=== PATIENT | female | born 1930 | race Caucasian/White ===

== ENCOUNTER → 2016-03-26 | Outpatient (CLI) | payer MEDICARE, MEDICAID ==
[~2016-03-26] MED LIST: ASPIRIN 81M81 MG/TA2 PO; B-121000 MCG PO; CEFTIN 250250 MG/TAB PO; CELEBREX 200MG200 MG PO; CHLORASEPTIC 1177 M1 MM; CHLORASEPTIC MM; COREG 3.123.125 MG/T PO; COREG12.5 MG PO; DIFLUCAN 100MG100 MG PO; DULCOLAX S10 MG/SUPP RC; EXELON PAT4.6 MG/24 TD; FERROUS GL325 MG/TAB PO; FOLIC ACID 11 MG/TA1 PO; GLUCERNA HUNGE340 ML PO; IRON TABLETS325 MG PO; LASIX 20MG TABL20 MG PO; LEVEMIR100 U/ML SQ; LIPITOR 10MG10 MG PO; LIPITOR 40MG TA40 MG PO; LOVENOX 4040 MG/0.4 SQ; MAG-OX 400400 MG/TAB PO; MILK OF MA400 MG/5 M PO; NEURONTIN100 MG/CAP PO; NEURONTIN300 MG/CAP PO; NORCO 325 MG-51 TAB PO; NORCO 325 MG-7.1 TAB PO; NOVOLOG 100U100 U/M1 SQ; OSCAL 500 TAB500 MG PO; PRIL40 PO; PRILOSEC 20MG20 MG PO; RIFADIN300 MG PO; SENNA8.6 MG PO; SENOKOT S 50 MG1 TAB PO; SENOKOT8.6 MG PO; SYNTHROID0.075 MG/T PO; SYNTHROID0.1 MG/TAB PO; THERAGRAN1 TA1 PO; TYLENOL 325MG325 MG PO; ULTRAM 50MG TAB50 MG PO; VANCOCIN HCL1 GM IV; VITAMIN B-1000 MCG/T PO; VITAMIN C500 MG PO; XARELTO10 MG PO; ZESTRIL 20MG TA20 MG PO; ZOCOR 80MG80 MG PO; ZYRTEC 10MG10 MG PO
[2016-03-26 17:58] LABS: THYROID STIMULATING HORMONE 2.57 uIU/mL (0.465-4.680)
== END ==
LOC: ZLAB.STJ 11:20
DX: E78.4 Other hyperlipidemia (principal); D64.89 Other specified anemias; E03.8 Other specified hypothyroidism

== ENCOUNTER → 2016-04-04 | Outpatient (CLI) | payer MEDICARE, MEDICAID ==
[2016-04-04 15:54] LABS: BASO # 0.1 (0.0-0.2); BASO % 0.6 % (0.0-2.0); EOS # 0.2 (0.0-0.7); EOS % 2.8 % (0-4.0); GRAN # 5.6 (1.4-6.5); GRAN % 64.8 % (42.2-75.2); HEMATOCRIT 36.8 % (37.0-47.0); HEMOGLOBIN 11.6 g/dl (12.5-16.0); LYMPH # 2.1 (1.2-3.4); LYMPH % 23.9 % (20.0-51.0); MEAN CELL VOLUME 97 fl (80.0-100.0); MEAN CORPUSCULAR HEMOGLOBIN 31 pg (27.0-31.0); MEAN CORPUSCULAR HGB CONC 32 g/dl (33.0-37.0); MEAN PLATELET VOLUME 11.4 fl (7.4-10.4); MONO # 0.7 (0.1-0.6); MONO % 7.6 % (1.7-9.3); PLATELET COUNT 171 K/mm3 (130-400); RED BLOOD COUNT 3.79 M/mm3 (4.10-5.30); REDCELL DISTRIBUTION WIDTH-CV 13.8 % (11.5-14.5); WHITE BLOOD COUNT 8.6 K/mm3 (4.8-10.8)
[2016-04-04 17:28] LABS: THYROID STIMULATING HORMONE 2.64 uIU/mL (0.465-4.680)
== END ==
LOC: ZLAB.STJ 15:00
PROVIDERS: Internal Medicine
DX: E78.5 Hyperlipidemia, unspecified (principal); D64.9 Anemia, unspecified; I50.9 Heart failure, unspecified; Z80.9 Family history of malignant neoplasm, unspecified; E03.9 Hypothyroidism, unspecified

== ENCOUNTER → 2016-04-10 | Outpatient (CLI) | payer MEDICARE, MEDICAID | LOC: ZLAB.STJ 14:20 | DX: E08.65 Diabetes mellitus due to underlying condition with hyperglycemia (principal) ==

== ENCOUNTER → 2016-05-03 | Outpatient (CLI) | payer MEDICARE, MEDICAID ==
[2016-05-03 12:08] LABS: BASO # 0.1 (0.0-0.2); BASO % 0.6 % (0.0-2.0); EOS # 0.3 (0.0-0.7); EOS % 3.1 % (0-4.0); GRAN % 62.3 % (42.2-75.2); HEMATOCRIT 38.1 % (37.0-47.0); HEMOGLOBIN 12.2 g/dl (12.5-16.0); LYMPH # 2.2 (1.2-3.4); MEAN CELL VOLUME 97 fl (80.0-100.0); MEAN CORPUSCULAR HEMOGLOBIN 31 pg (27.0-31.0); MEAN CORPUSCULAR HGB CONC 32 g/dl (33.0-37.0); MEAN PLATELET VOLUME 11.1 fl (7.4-10.4); MONO # 0.6 (0.1-0.6); MONO % 6.9 % (1.7-9.3); PLATELET COUNT 179 K/mm3 (130-400); RED BLOOD COUNT 3.94 M/mm3 (4.10-5.30); WHITE BLOOD COUNT 8.1 K/mm3 (4.8-10.8)
[2016-05-03 12:16] LABS: ADJUSTED CALCIUM 9.6 mg/dL (8.4-10.2); ALBUMIN 3.5 gm/dL (3.5-5.0); BILIRUBIN,TOTAL 0.7 mg/dL (0.0-1.0); CALCIUM 9.2 mg/dL (8.4-10.2); CREATININE, serum 1.6 mg/dL (0.52-1.25); POTASSIUM 5.4 mmol/L (3.4-5.0); TOTAL PROTEIN 6.8 gm/dL (6.4-8.2)
== END ==
LOC: ZLAB.STJ 09:15
PROVIDERS: Internal Medicine
DX: F03.90 Unspecified dementia, unspecified severity, without behavioral disturbance, psychotic disturbance, mood disturbance, and anxiety (principal)

== ENCOUNTER → 2016-06-07 | Outpatient (CLI) | payer MEDICARE, MEDICAID ==
[2016-06-07 17:56] LABS: PH 5 (5-8); URINE APPEARANCE Turbid; URINE BACTERIA None Seen /hpf; URINE BILIRUBIN Negative (NEGATIVE); URINE BLOOD 1+ (NEGATIVE); URINE COLOR Yellow; URINE GLUCOSE Negative (NEGATIVE); URINE KETONE Negative (NEGATIVE); URINE RBC >50 /hpf; URINE UROBILINOGEN Negative (NEGATIVE); URINE WBC >50 /hpf
== END ==
LOC: ZLAB.STJ 17:37
PROVIDERS: Internal Medicine
DX: Z01.89 Encounter for other specified special examinations (principal)

== ENCOUNTER → 2016-07-31 | Outpatient (CLI) | payer MEDICARE, MEDICAID ==
[2016-07-31 11:01] LABS: CALCIUM 8.9 mg/dL (8.4-10.2); CREATININE, serum 1.48 mg/dL (0.52-1.25); POTASSIUM 5.6 mmol/L (3.4-5.0)
== END ==
LOC: ZLAB.STJ 09:41
PROVIDERS: Internal Medicine
DX: I10 Essential (primary) hypertension (principal)

== ENCOUNTER → 2016-08-03 | Outpatient (CLI) | payer MEDICARE, MEDICAID | LOC: ZCOL.LAB 14:17 | DX: E87.5 Hyperkalemia (principal) ==

== ENCOUNTER → 2016-08-09 | Outpatient (CLI) | payer MEDICARE, MEDICAID ==
[2016-08-09 12:39] LABS: BASO # 0.1 (0.0-0.2); BASO % 0.6 % (0.0-2.0); EOS # 0.2 (0.0-0.7); EOS % 2.2 % (0-4.0); GRAN # 6.1 (1.4-6.5); LYMPH % 22.2 % (20.0-51.0); MEAN CELL VOLUME 99 fl (80.0-100.0); MEAN CORPUSCULAR HGB CONC 31 g/dl (33.0-37.0); MEAN PLATELET VOLUME 11.4 fl (7.4-10.4); MONO # 0.7 (0.1-0.6); MONO % 7.8 % (1.7-9.3); PLATELET COUNT 184 K/mm3 (130-400); RED BLOOD COUNT 3.57 M/mm3 (4.10-5.30); REDCELL DISTRIBUTION WIDTH-CV 14.6 % (11.5-14.5); WHITE BLOOD COUNT 9.1 K/mm3 (4.8-10.8)
[2016-08-09 12:47] LABS: HEMATOCRIT 35.2 % (37.0-47.0); MEAN CORPUSCULAR HEMOGLOBIN 31 pg (27.0-31.0)
[2016-08-09 13:02] LABS: CALCIUM 8.6 mg/dL (8.4-10.2); CREATININE, serum 1.36 mg/dL (0.52-1.25); POTASSIUM 5.2 mmol/L (3.4-5.0)
== END ==
LOC: ZLAB.STJ 12:16
PROVIDERS: Nurse Practitioner
DX: M62.82 Rhabdomyolysis (principal); I10 Essential (primary) hypertension; E08.65 Diabetes mellitus due to underlying condition with hyperglycemia

== ENCOUNTER → 2016-08-14 | Outpatient (CLI) | payer MEDICARE, MEDICAID | LOC: ZLAB.STJ 11:56 | DX: E56.9 Vitamin deficiency, unspecified (principal) ==

== ENCOUNTER → 2016-11-05 | Outpatient (CLI) | payer MEDICARE, MEDICAID ==
[2016-11-05 10:52] LABS: BASO # 0.1 (0.0-0.2); BASO % 0.5 % (0.0-2.0); EOS # 0.2 (0.0-0.7); EOS % 2.5 % (0-4.0); GRAN # 6.6 (1.4-6.5); GRAN % 68.9 % (42.2-75.2); HEMATOCRIT 38.1 % (37.0-47.0); LYMPH % 20.6 % (20.0-51.0); MEAN CELL VOLUME 96 fl (80.0-100.0); MEAN CORPUSCULAR HEMOGLOBIN 30 pg (27.0-31.0); MEAN CORPUSCULAR HGB CONC 32 g/dl (33.0-37.0); MEAN PLATELET VOLUME 11.1 fl (7.4-10.4); MONO # 0.7 (0.1-0.6); MONO % 7.3 % (1.7-9.3); PLATELET COUNT 180 K/mm3 (130-400); RED BLOOD COUNT 3.98 M/mm3 (4.10-5.30); REDCELL DISTRIBUTION WIDTH-CV 13.6 % (11.5-14.5); WHITE BLOOD COUNT 9.6 K/mm3 (4.8-10.8)
[2016-11-05 11:06] LABS: ADJUSTED CALCIUM 9.3 mg/dL (8.4-10.2); ALBUMIN 3.5 gm/dL (3.5-5.0); BILIRUBIN,TOTAL 0.5 mg/dL (0.0-1.0); CALCIUM 8.9 mg/dL (8.4-10.2); CREATININE, serum 1.37 mg/dL (0.52-1.25); POTASSIUM 4.9 mmol/L (3.4-5.0); TOTAL PROTEIN 6.8 gm/dL (6.4-8.2)
== END ==
LOC: ZCOL.LAB 10:18
PROVIDERS: Internal Medicine
DX: I50.9 Heart failure, unspecified (principal); E08.65 Diabetes mellitus due to underlying condition with hyperglycemia

== ENCOUNTER → 2016-11-06 | Outpatient (CLI) | payer MEDICARE, MEDICAID ==
[2016-11-06 15:40] LABS: PH 7 (5-8); SQUAMOUS EPITHELIAL None Seen /hpf; URINE APPEARANCE Turbid; URINE BACTERIA Rare /hpf; URINE BILIRUBIN Negative (NEGATIVE); URINE BLOOD 3+ (NEGATIVE); URINE COLOR Yellow; URINE GLUCOSE Negative (NEGATIVE); URINE KETONE Negative (NEGATIVE); URINE RBC >50 /hpf; URINE UROBILINOGEN Negative (NEGATIVE)
[2016-11-06 15:42] LABS: URINE WBC >50 /hpf
== END ==
LOC: ZLAB.STJ 15:20
PROVIDERS: Internal Medicine
DX: N39.0 Urinary tract infection, site not specified (principal)

== ENCOUNTER → 2017-01-30 | Outpatient (REF) ==
[2017-01-30 09:55] LABS: CALCIUM 8.8 mg/dL (8.4-10.2); CREATININE, serum 1.55 mg/dL (0.52-1.25); POTASSIUM 5.2 mmol/L (3.4-5.0)
== END ==
LOC: ZLAB.STJ 09:40
PROVIDERS: Internal Medicine
DX: I10 Essential (primary) hypertension (principal)

== ENCOUNTER 2017-03-04 18:30 | Inpatient (IN) | payer MEDICARE, MEDICAID ==
[~2017-03-04] VITALS: Ht 154.9 cm; Wt 92.0 kg
[2017-03-04] MEDS ORDERED: LIPITOR20 MG PO (18:55)
[2017-03-04] MEDS ORDERED: LEVOXYL0.075 MG PO (18:56)
[2017-03-04] MEDS ORDERED: NOVOLOG 100U100 U/M1 SQ (18:57)
[2017-03-04] MEDS ORDERED: ZOFRAN 4MG T4 MG/TAB PO (18:57)
[2017-03-04] MEDS ORDERED: FOLIC ACID 11 MG/TA1 PO (18:58)
[2017-03-04] MEDS ORDERED: NEURONTIN100 MG/CAP PO (18:58)
[2017-03-04 19:08] LABS: BASO % 0.3 % (0.0-2.0); EOS % 0.3 % (0-4.0); GRAN # 9.1 (1.4-6.5); GRAN % 80.9 % (42.2-75.2); HEMATOCRIT 37.3 % (37.0-47.0); LYMPH # 1.2 (1.2-3.4); LYMPH % 11.1 % (20.0-51.0); MEAN CELL VOLUME 101 fl (80.0-100.0); MEAN CORPUSCULAR HEMOGLOBIN 30 pg (27.0-31.0); MEAN CORPUSCULAR HGB CONC 30 g/dl (33.0-37.0); MEAN PLATELET VOLUME 10.6 fl (7.4-10.4); MONO # 0.8 (0.1-0.6); PLATELET COUNT 145 K/mm3 (130-400); RED BLOOD COUNT 3.71 M/mm3 (4.10-5.30); REDCELL DISTRIBUTION WIDTH-CV 13.9 % (11.5-14.5)
[2017-03-04 19:09] LABS: HEMOGLOBIN 11.2 g/dl (12.5-16.0)
[2017-03-04 19:16] LABS: ALBUMIN 4.1 gm/dL (3.5-5.0); BILIRUBIN,TOTAL 0.6 mg/dL (0.0-1.0); CREATININE, serum 1.73 mg/dL (0.52-1.25); POTASSIUM 5.5 mmol/L (3.4-5.0); TOTAL PROTEIN 7.9 gm/dL (6.4-8.2)
[2017-03-04] MEDS ORDERED: OYSTER SHELL C500 MG PO (19:18)
[2017-03-04] MEDS ORDERED: NEURONTIN300 MG/CAP PO (19:18)
[2017-03-04] MEDS ORDERED: EXELON PAT4.6 MG/24 TD (19:19)
[2017-03-04] MEDS ORDERED: COREG12.5 MG PO (19:20)
[2017-03-04] MEDS ORDERED: ZYRTEC 10MG10 MG PO (19:21)
[2017-03-04] MEDS ORDERED: PEPCID 20MG TAB20 MG PO (19:22)
[2017-03-04] MEDS ORDERED: MAPAP MULTI-SYM1 TA1 PO (19:23)
[2017-03-04] MEDS ORDERED: GOOD NEIGH1200 MG/15 PO (19:25)
[2017-03-04] MEDS ORDERED: IMODIUM 2MG CAPS2 MG PO (19:26)
[2017-03-04] MEDS ORDERED: ALMACONE 360 M360 ML PO (19:35)
[2017-03-04] MEDS ORDERED: NORCO 325 MG-51 TAB PO ×2 (19:36)
[2017-03-04] MEDS ORDERED: LEVEMIR100 U/ML SQ (19:37)
[2017-03-04] MEDS ORDERED: MAG-OX 400400 MG/TAB PO (19:38)
[2017-03-04] MEDS ORDERED: SENOKOT S 50 MG1 TAB PO (19:38)
[2017-03-04] MEDS ORDERED: ZESTRIL 10MG10 MG PO (19:39)
[2017-03-04] MEDS ORDERED: FERROUS SU325 MG/TAB PO (19:40)
[2017-03-04] MEDS ORDERED: LASIX 20MG TABL20 MG PO (20:09)
[2017-03-04] MEDS ORDERED: ROBITUSSIN DM 105 ML PO (20:10)
[2017-03-04] MEDS ORDERED: ALBUTEROL0.83 MG/ML IH (20:12)
[2017-03-04] MEDS ORDERED: NYSTATIN CREAM15 GM TP (20:13)
[2017-03-04 20:56] LABS: COLLECTION METHOD CATHETER
[2017-03-04 21:14] LABS: BUDDING YEAST Present /hpf; PH 6 (5-8); SQUAMOUS EPITHELIAL None Seen /hpf; URINE APPEARANCE Turbid; URINE BACTERIA Rare /hpf; URINE BILIRUBIN Negative (NEGATIVE); URINE BLOOD 3+ (NEGATIVE); URINE COLOR Yellow; URINE GLUCOSE 1+ (NEGATIVE); URINE KETONE Negative (NEGATIVE); URINE LEUKOCYTE ESTERASE 3+ (NEGATIVE); URINE NITRATE Negative (NEGATIVE); URINE PROTEIN(semi-quant) 2+ (NEGATIVE); URINE RBC >50 /hpf; URINE UROBILINOGEN Negative (NEGATIVE)
[2017-03-04 21:24] LABS: INFLUENZA A NEGATIVE; INFLUENZA B NEGATIVE
[2017-03-04 22:21] VITALS: BP 161/51; PULSE 72; TEMP 98
[2017-03-04 23:56] VITALS: BP 124/40; PULSE 64; TEMP 98.1
[2017-03-05] VITALS (7 sets, daily range): BP systolic 119–179; BP diastolic 47–110; PULSE 59–74; TEMP 97.4–99.9
[2017-03-05 04:34] LABS: ARTERIAL BLD GAS O2 SATURATION 93.6 % (92-100); ARTERIAL BLD GAS TCO2 CT 29.7; ARTERIAL BLOOD GAS BASE EXCESS 0.4 (-2-2); ARTERIAL BLOOD GAS HCO3 27.9 meq/L (22-26); ARTERIAL BLOOD GAS PCO2 58.2 mmHg (35-45); ARTERIAL BLOOD GAS PO2 72.8 mmHg (80-100)
[2017-03-05 06:49] LABS: ARTERIAL BLD GAS O2 SATURATION 96.2 % (92-100); ARTERIAL BLD GAS TCO2 CT 33.4; ARTERIAL BLOOD GAS BASE EXCESS 4.2 (-2-2); ARTERIAL BLOOD GAS HCO3 31.5 meq/L (22-26); ARTERIAL BLOOD GAS PCO2 61.1 mmHg (35-45); ARTERIAL BLOOD GAS PO2 92.3 mmHg (80-100); ARTERIAL BLOOD GAS pH 7.33 (7.35-7.45)
[2017-03-05 07:59] LABS: BASO % 0.2 % (0.0-2.0); EOS % 0.1 % (0-4.0); GRAN # 7.3 (1.4-6.5); GRAN % 79.5 % (42.2-75.2); LYMPH # 1.3 (1.2-3.4); LYMPH % 13.9 % (20.0-51.0); MEAN CELL VOLUME 100 fl (80.0-100.0); MEAN CORPUSCULAR HGB CONC 30 g/dl (33.0-37.0); MEAN PLATELET VOLUME 10.6 fl (7.4-10.4); MONO # 0.5 (0.1-0.6); MONO % 5.8 % (1.7-9.3); PLATELET COUNT 127 K/mm3 (130-400); REDCELL DISTRIBUTION WIDTH-CV 13.8 % (11.5-14.5)
[2017-03-05 08:00] LABS: HEMOGLOBIN 10.2 g/dl (12.5-16.0); MEAN CORPUSCULAR HEMOGLOBIN 30 pg (27.0-31.0)
[2017-03-05 08:16] LABS: CALCIUM 8.2 mg/dL (8.4-10.2); CREATININE, serum 1.58 mg/dL (0.52-1.25); POTASSIUM 4.8 mmol/L (3.4-5.0)
[2017-03-05 15:04] LABS: ARTERIAL BLD GAS O2 SATURATION 96.7 % (92-100); ARTERIAL BLD GAS TCO2 CT 33.8; ARTERIAL BLOOD GAS BASE EXCESS 5.5 (-2-2); ARTERIAL BLOOD GAS HCO3 32.1 meq/L (22-26); ARTERIAL BLOOD GAS PCO2 56.1 mmHg (35-45); ARTERIAL BLOOD GAS PO2 89.1 mmHg (80-100); ARTERIAL BLOOD GAS pH 7.38 (7.35-7.45)
[2017-03-06 04:01] VITALS: BP 153/66; PULSE 61; TEMP 97.3
[2017-03-06 05:34] LABS: ARTERIAL BLD GAS O2 SATURATION 96.9 % (92-100); ARTERIAL BLD GAS TCO2 CT 34.6; ARTERIAL BLOOD GAS BASE EXCESS 7.8 (-2-2); ARTERIAL BLOOD GAS HCO3 33.1 meq/L (22-26); ARTERIAL BLOOD GAS PCO2 49.3 mmHg (35-45); ARTERIAL BLOOD GAS PO2 97.8 mmHg (80-100); ARTERIAL BLOOD GAS pH 7.45 (7.35-7.45)
[2017-03-06 07:24] LABS: BASO % 0.1 % (0.0-2.0); GRAN # 6.4 (1.4-6.5); GRAN % 82.6 % (42.2-75.2); LYMPH # 1.2 (1.2-3.4); LYMPH % 15.1 % (20.0-51.0); MEAN CELL VOLUME 97 fl (80.0-100.0); MEAN CORPUSCULAR HGB CONC 31 g/dl (33.0-37.0); MONO # 0.1 (0.1-0.6); MONO % 1.8 % (1.7-9.3); PLATELET COUNT 161 K/mm3 (130-400); RED BLOOD COUNT 3.69 M/mm3 (4.10-5.30); REDCELL DISTRIBUTION WIDTH-CV 13.7 % (11.5-14.5)
[2017-03-06 07:26] LABS: HEMATOCRIT 35.8 % (37.0-47.0); HEMOGLOBIN 11.2 g/dl (12.5-16.0); MEAN CORPUSCULAR HEMOGLOBIN 30 pg (27.0-31.0)
[2017-03-06 07:42] LABS: CALCIUM 8.9 mg/dL (8.4-10.2); CREATININE, serum 1.9 mg/dL (0.52-1.25); MAGNESIUM 1.9 mg/dL (1.6-2.3); POTASSIUM 4.2 mmol/L (3.4-5.0)
[2017-03-06 08:52] VITALS: BP 171/51; PULSE 59; TEMP 98.5
[2017-03-06 11:48] VITALS: BP 146/58; BP 159/106; PULSE 58; TEMP 98.3
[2017-03-06 16:29] VITALS: BP 175/65; PULSE 60; TEMP 97.8
[2017-03-06 19:51] VITALS: BP 151/64; PULSE 60; TEMP 97.8
[2017-03-06 23:39] VITALS: BP 133/57; PULSE 62; TEMP 97.6
[2017-03-07 03:48] VITALS: BP 103/82; PULSE 58; TEMP 98.4
[2017-03-07 07:30] LABS: MEAN CELL VOLUME 95 fl (80.0-100.0); MEAN CORPUSCULAR HGB CONC 32 g/dl (33.0-37.0); MEAN PLATELET VOLUME 11.3 fl (7.4-10.4); PLATELET COUNT 174 K/mm3 (130-400); RED BLOOD COUNT 3.73 M/mm3 (4.10-5.30); REDCELL DISTRIBUTION WIDTH-CV 13.5 % (11.5-14.5)
[2017-03-07 07:47] LABS: HEMATOCRIT 35.5 % (37.0-47.0); HEMOGLOBIN 11.3 g/dl (12.5-16.0); MEAN CORPUSCULAR HEMOGLOBIN 30 pg (27.0-31.0)
[2017-03-07 07:54] LABS: CALCIUM 8.8 mg/dL (8.4-10.2); CREATININE, serum 2.01 mg/dL (0.52-1.25); POTASSIUM 3.6 mmol/L (3.4-5.0)
[2017-03-07 08:31] VITALS: BP 156/58; PULSE 60; TEMP 98.8
[2017-03-07 08:46] LABS: BAND 23 % (0-10); LYMPHOCYTE 2 % (20.0-51.0); NEUTROPHILS 71 % (42.0-75.2); PLATELET ESTIMATE NORMAL (NORMAL)
[2017-03-07 12:20] VITALS: BP 167/66; PULSE 56; TEMP 98.2
[2017-03-07 16:34] VITALS: BP 157/63; PULSE 60; TEMP 98.9
[2017-03-07 19:34] VITALS: BP 150/55; PULSE 59; TEMP 97.6
[2017-03-08] VITALS (8 sets, daily range): BP systolic 143–199; BP diastolic 52–82; PULSE 59–61; TEMP 97.5–98.7
[2017-03-08 06:38] LABS: HEMATOCRIT 37.2 % (37.0-47.0); HEMOGLOBIN 12.2 g/dl (12.5-16.0); MEAN CELL VOLUME 93 fl (80.0-100.0); MEAN CORPUSCULAR HEMOGLOBIN 31 pg (27.0-31.0); MEAN CORPUSCULAR HGB CONC 33 g/dl (33.0-37.0); MEAN PLATELET VOLUME 11.1 fl (7.4-10.4); PLATELET COUNT 206 K/mm3 (130-400); RED BLOOD COUNT 3.99 M/mm3 (4.10-5.30); REDCELL DISTRIBUTION WIDTH-CV 13.2 % (11.5-14.5)
[2017-03-08 06:51] LABS: CREATININE, serum 1.94 mg/dL (0.52-1.25); POTASSIUM 3.6 mmol/L (3.4-5.0)
[2017-03-08 08:58] LABS: BAND 37 % (0-10); LYMPHOCYTE 14 % (20.0-51.0); NEUTROPHILS 48 % (42.0-75.2); PLATELET ESTIMATE NORMAL (NORMAL)
[2017-03-09 03:06] VITALS: BP 135/77; PULSE 59; TEMP 97.4
[2017-03-09 07:23] LABS: BASO % 0.1 % (0.0-2.0); GRAN # 10.8 (1.4-6.5); GRAN % 84.7 % (42.2-75.2); LYMPH # 1.3 (1.2-3.4); LYMPH % 9.9 % (20.0-51.0); MEAN CELL VOLUME 94 fl (80.0-100.0); MEAN CORPUSCULAR HGB CONC 32 g/dl (33.0-37.0); MEAN PLATELET VOLUME 11.1 fl (7.4-10.4); MONO # 0.5 (0.1-0.6); MONO % 4.2 % (1.7-9.3); PLATELET COUNT 196 K/mm3 (130-400); RED BLOOD COUNT 3.88 M/mm3 (4.10-5.30); REDCELL DISTRIBUTION WIDTH-CV 13.3 % (11.5-14.5)
[2017-03-09 07:25] LABS: HEMATOCRIT 36.4 % (37.0-47.0); HEMOGLOBIN 11.7 g/dl (12.5-16.0); MEAN CORPUSCULAR HEMOGLOBIN 30 pg (27.0-31.0)
[2017-03-09 07:35] LABS: CALCIUM 8.8 mg/dL (8.4-10.2); CREATININE, serum 1.77 mg/dL (0.52-1.25); POTASSIUM 3.5 mmol/L (3.4-5.0)
[2017-03-09 08:02] VITALS: BP 153/77; PULSE 60; TEMP 98.4
[2017-03-09 11:56] VITALS: BP 143/54; PULSE 60; TEMP 97.4
[2017-03-09 15:02] VITALS: BP 170/53; PULSE 59; TEMP 97.6
[2017-03-09 19:19] VITALS: BP 131/50; PULSE 59; TEMP 97.5
[2017-03-10 00:17] VITALS: BP 135/53; PULSE 59; TEMP 97.5
[2017-03-10 03:34] VITALS: BP 144/52; PULSE 59; TEMP 97
[2017-03-10 06:41] LABS: MEAN CELL VOLUME 94 fl (80.0-100.0); MEAN CORPUSCULAR HGB CONC 32 g/dl (33.0-37.0); MEAN PLATELET VOLUME 10.9 fl (7.4-10.4); PLATELET COUNT 183 K/mm3 (130-400); RED BLOOD COUNT 3.89 M/mm3 (4.10-5.30); REDCELL DISTRIBUTION WIDTH-CV 13.3 % (11.5-14.5)
[2017-03-10 06:42] LABS: HEMATOCRIT 36.6 % (37.0-47.0); HEMOGLOBIN 11.8 g/dl (12.5-16.0); MEAN CORPUSCULAR HEMOGLOBIN 30 pg (27.0-31.0)
[2017-03-10 06:57] LABS: CALCIUM 8.8 mg/dL (8.4-10.2); CREATININE, serum 1.62 mg/dL (0.52-1.25); POTASSIUM 3.8 mmol/L (3.4-5.0)
[2017-03-10 07:24] LABS: BAND 3 % (0-10); LYMPHOCYTE 13 % (20.0-51.0); NEUTROPHILS 79 % (42.0-75.2); PLATELET ESTIMATE NORMAL (NORMAL)
[2017-03-10 07:25] LABS: HYPOCHROMIA 1+
[2017-03-10 08:10] VITALS: BP 127/88; PULSE 59; TEMP 97.7
[2017-03-10 11:51] VITALS: BP 150/56; PULSE 60; TEMP 97.8
[2017-03-10 17:10] VITALS: BP 158/68; PULSE 59; TEMP 97.8
[2017-03-10 20:08] VITALS: BP 157/55; PULSE 59; TEMP 98.1
[2017-03-11] VITALS (7 sets, daily range): BP systolic 100–155; BP diastolic 46–85; PULSE 59–85; TEMP 97–98.7
[2017-03-12 03:49] VITALS: BP 148/56; PULSE 59; TEMP 97.1
[2017-03-12 08:07] VITALS: BP 142/108; PULSE 60; TEMP 97.7
[2017-03-12 11:22] VITALS: BP 137/59; PULSE 59; TEMP 97.8
[2017-03-12] MEDS ORDERED: PREDNISONE10 MG PO (11:38)
[2017-03-12] MEDS ORDERED: NOVOLOG FLEX100 U/ML SQ ×2 (11:39→11:42)
[2017-03-12] MEDS ORDERED: LEVEMIR FLEX100 U/ML SQ (11:39)
[2017-03-12 12:43] VITALS: BP 137/59; PULSE 59; TEMP 97.8
== END 2017-03-12 13:48 | DRG 291 ==
LOC: COL.ER 18:30 → MEDICAL 20:34
PROVIDERS: Emergency Medicine; Internal Medicine; Nurse Practitioner; Nurse Practitioner Family; Physician Assistant
DX: I13.0 Hypertensive heart and chronic kidney disease with heart failure and stage 1 through stage 4 chronic kidney disease, or unspecified chronic kidney disease (principal); I50.33 Acute on chronic diastolic (congestive) heart failure; J96.01 Acute respiratory failure with hypoxia; J96.02 Acute respiratory failure with hypercapnia; N39.0 Urinary tract infection, site not specified; Z66 Do not resuscitate; J44.1 Chronic obstructive pulmonary disease with (acute) exacerbation; N17.9 Acute kidney failure, unspecified; E87.4 Mixed disorder of acid-base balance; N18.9 Chronic kidney disease, unspecified; E11.22 Type 2 diabetes mellitus with diabetic chronic kidney disease; B96.4 Proteus (mirabilis) (morganii) as the cause of diseases classified elsewhere; Z95.0 Presence of cardiac pacemaker; E87.5 Hyperkalemia; F03.90 Unspecified dementia, unspecified severity, without behavioral disturbance, psychotic disturbance, mood disturbance, and anxiety; Z87.891 Personal history of nicotine dependence; E11.65 Type 2 diabetes mellitus with hyperglycemia; B97.81 Human metapneumovirus as the cause of diseases classified elsewhere
CPT/HCPCS: 99223; 99223-AI; 99231-AI; 99232-AI; 99233-AI; 99239; G0378; J0696; J1450; J1650; J1815; J1940; J2405; J2920; J7030; J7512